=== PATIENT | female | born 1975 | race Caucasian/White ===

== ENCOUNTER 2021-10-23 14:17 | Inpatient (IN) ==
[2021-10-23] MEDS ORDERED: CeFAZolin Syr 2,000MG/20 ML 2,000 MG/20 ML SYRINGE IVPB ONE (14:30)
[2021-10-23] MEDS ORDERED: Ringers Solution, Lactated 1,000 ML IVC SCH (14:30)
[2021-10-23] MEDS ORDERED: Ondansetron 4 MG/2 ML VIAL IVP PRN ×2 (15:11→21:13)
[2021-10-23] MEDS ORDERED: *HR* HYDROmorphone PF 0.5 MG/0.5 ML SYRINGE IVP PRN (15:11)
[2021-10-23] MEDS ORDERED: *HR* OxyCODONE Immed Rel 5 MG TABLET PO PRN (15:11)
[2021-10-23] MEDS ORDERED: *HR* FentaNYL (PF) 100 MCG/2 ML VIAL ONE (15:30)
[2021-10-23] MEDS ORDERED: *HR* Propofol 200 MG/20 ML VIAL IVP ONE (15:30)
[2021-10-23] MEDS ORDERED: *HR* Midazolam HCl 2 MG/2 ML VIAL ONE (15:30)
[2021-10-23] MEDS ORDERED: Lidocaine -MPF 2% 5 ML VIAL ONE (15:32)
[2021-10-23] MEDS ORDERED: Lidocaine HCL 4 ML Topical Solution (Laryng-O-Jet Kit Sterile Pak) TP ONE (17:02)
[2021-10-23] MEDS ORDERED: Iopamidol - 300 50 ML VIAL ONE (17:51)
[2021-10-23] MEDS ORDERED: Acetaminophen IV 1,000 MG/100 ML BAG IVPB ONE ×2 (17:53→17:54)
[2021-10-23] MEDS ORDERED: *HR* Belladonna Alkaloids/Opium 30 MG RECTAL SUPPOSITORY RC PRN (21:13)
[2021-10-23] MEDS ORDERED: Naloxone 0.4 MG/ML INJ IVP PRN (21:13)
[2021-10-23] MEDS ORDERED: *HR* Promethazine 25 MG/ML VIAL IM PRN (21:13)
[2021-10-23 22:06] LABS: Basophils % 0.3 %; Hematocrit 28.3 % (35.3-44.9); Hemoglobin 8.8 g/dL (11.5-15.4); Immature Granulocytes % 0.7 % (0-4); Lymphocytes # 0.8 K/mcL (0.6-4.6); Lymphocytes % 13.2 %; Mean Corpuscular HGB Conc 31.1 g/dL (31.6-35.5); Mean Corpuscular Hemoglobin 25.6 pg (28.0-33.3); Mean Corpuscular Volume 82.3 fL (83.0-100.0); Mean Platelet Volume 9.7 fL (9.4-12.4); Monocytes # 0.2 K/mcL (0.0-1.3); Monocytes % 4.1 %; Neutrophils # 4.8 K/mcL (1.6-8.9); Platelet Count 240 K/mcL (140-400); Red Blood Count 3.44 M/mcL (3.82-4.97); Red Cell Distribution Width 19.6 % (11.5-14.5); Segmented Neutrophils % 81.7 %; White Blood Count 5.8 K/mcL (4.3-11.1)
[2021-10-23 22:30] LABS: Calcium 9.5 mg/dL (8.6-10.3); Potassium 4.3 mEq/L (3.5-5.1)
[2021-10-23] MEDS: *HR* OxyCODONE Immed Rel 5 MG TABLET PO PRN (22:48)
[2021-10-23] MEDS: 0.9 % Sodium Chloride 1,000 ML IVC SCH (22:48)
[2021-10-23] MEDS: cefTRIAXone 1,000 MG in 0.9 % Sodium Chloride 10 ML IVP SCH (22:55)
[2021-10-23] MEDS: Acetaminophen IV 1,000 MG/100 ML BAG IVPB SCH (23:02)
[2021-10-24] MEDS: Acetaminophen IV 1,000 MG/100 ML BAG IVPB SCH ×3 (06:03→17:51)
[2021-10-24] MEDS: *HR* OxyCODONE Immed Rel 5 MG TABLET PO PRN ×2 (06:04→13:26)
[2021-10-24] MEDS: cefTRIAXone 1,000 MG in 0.9 % Sodium Chloride 10 ML IVP SCH (07:48)
[2021-10-24 10:00] LABS: INR 1.3
[2021-10-24] MEDS: 0.9 % Sodium Chloride 1,000 ML IVC SCH (10:59)
[2021-10-24] MEDS ORDERED: 0.9 % Sodium Chloride 500 ML ONE (11:38)
[2021-10-24] MEDS ORDERED: *HR* FentaNYL (PF) 100 MCG/2 ML VIAL IVP ONE (12:08)
[2021-10-24] MEDS ORDERED: *HR* Midazolam HCl 2 MG/2 ML VIAL IVP ONE (12:08)
[2021-10-24] MEDS: *HR* OxyCODONE/APAP 10/325 TABLET PO PRN (20:10)
[2021-10-25] MEDS: *HR* OxyCODONE/APAP 10/325 TABLET PO PRN ×5 (00:47→22:08)
[2021-10-25] MEDS: 0.9 % Sodium Chloride 1,000 ML IVC SCH ×2 (00:56→14:05)
[2021-10-25 04:10] LABS: Basophils % 0.2 %; Eosinophils % 0.1 %; Hematocrit 26.6 % (35.3-44.9); Hemoglobin 8.4 g/dL (11.5-15.4); Immature Granulocytes % 0.7 % (0-4); Lymphocytes # 1.7 K/mcL (0.6-4.6); Lymphocytes % 13.1 %; Mean Corpuscular HGB Conc 31.6 g/dL (31.6-35.5); Mean Corpuscular Hemoglobin 25.5 pg (28.0-33.3); Mean Corpuscular Volume 80.6 fL (83.0-100.0); Mean Platelet Volume 10.7 fL (9.4-12.4); Monocytes # 0.7 K/mcL (0.0-1.3); Monocytes % 5.3 %; Platelet Count 291 K/mcL (140-400); Red Cell Distribution Width 19.8 % (11.5-14.5); Segmented Neutrophils % 80.6 %
[2021-10-25 04:17] LABS: Neutrophils # 10.7 K/mcL (1.6-8.9); White Blood Count 13.3 K/mcL (4.3-11.1)
[2021-10-25 04:31] LABS: Potassium 3.8 mEq/L (3.5-5.1)
[2021-10-25] MEDS: cefTRIAXone 1,000 MG in 0.9 % Sodium Chloride 10 ML IVP SCH (10:11)
[2021-10-25] MEDS: Hyoscyamine SL 0.125 MG TAB.SUBL SL PRN ×2 (12:17→21:48)
[2021-10-25] MEDS: *HR* HYDROcodone/Acet 5/325 mg TABLET PO PRN (21:48)
[2021-10-26] MEDS: *HR* OxyCODONE/APAP 10/325 TABLET PO PRN ×4 (02:29→21:06)
[2021-10-26] MEDS: Hyoscyamine SL 0.125 MG TAB.SUBL SL PRN ×2 (02:30→06:39)
[2021-10-26] MEDS: 0.9 % Sodium Chloride 1,000 ML IVC SCH (03:32)
[2021-10-26] MEDS: cefTRIAXone 1,000 MG in 0.9 % Sodium Chloride 10 ML IVP SCH (09:11)
[2021-10-26] MEDS: *HR* HYDROcodone/Acet 5/325 mg TABLET PO PRN (09:32)
[2021-10-26] MEDS ORDERED: Iopamidol - 300 100 ML INFUS..BTL ONE (14:57)
[2021-10-26] MEDS ORDERED: *HR* Rocuronium Bromide 50 MG/5 ML VIAL ONE (15:07)
[2021-10-26] MEDS ORDERED: *HR* Propofol 200 MG/20 ML VIAL IVP ONE (15:07)
[2021-10-26] MEDS ORDERED: *HR* Succinylcholine 200 MG/10 ML VIAL IVP ONE (15:07)
[2021-10-26] MEDS ORDERED: *HR* FentaNYL (PF) 100 MCG/2 ML VIAL ONE ×2 (15:07→16:02)
[2021-10-26] MEDS ORDERED: Lidocaine HCL 4 ML Topical Solution (Laryng-O-Jet Kit Sterile Pak) TP ONE (15:07)
[2021-10-26] MEDS ORDERED: *HR* Midazolam HCl 2 MG/2 ML VIAL ONE (15:07)
[2021-10-26] MEDS ORDERED: Ondansetron 4 MG/2 ML VIAL ONE (15:07)
[2021-10-26] MEDS ORDERED: Lidocaine -MPF 2% 5 ML VIAL ONE (15:07)
[2021-10-26] MEDS ORDERED: *HR* HYDROmorphone PF 0.5 MG/0.5 ML SYRINGE IVP PRN (15:15)
[2021-10-26] MEDS ORDERED: Ondansetron 4 MG/2 ML VIAL IVP PRN ×2 (15:15→18:02)
[2021-10-26] MEDS ORDERED: *HR* HYDROMORPHONE 2 MG/ML VIAL ONE (16:16)
[2021-10-26] MEDS ORDERED: Sugammadex Sodium 200 MG/2 ML VIAL IV ONE (16:46)
[2021-10-26] MEDS ORDERED: *HR* Promethazine 25 MG/ML VIAL ONE (17:05)
[2021-10-26] MEDS ORDERED: Hyoscyamine SL 0.125 MG TAB.SUBL SL PRN (18:02)
[2021-10-26] MEDS ORDERED: *HR* HYDROcodone/Acet 5/325 mg TABLET PO PRN (18:02)
[2021-10-26] MEDS ORDERED: 0.9 % Sodium Chloride 1,000 ML IVC SCH (18:02)
[2021-10-26] MEDS ORDERED: *HR* Promethazine 25 MG/ML VIAL IM PRN (18:02)
[2021-10-26] MEDS ORDERED: Naloxone 0.4 MG/ML INJ IVP PRN (18:02)
[2021-10-26] MEDS ORDERED: *HR* Belladonna Alkaloids/Opium 30 MG RECTAL SUPPOSITORY RC PRN (18:02)
[2021-10-27] MEDS: *HR* OxyCODONE/APAP 10/325 TABLET PO PRN (02:22)
[2021-10-27 07:40] VITALS: BP 129/74; PULSE 90; TEMP 97.2; O2SAT 95
[2021-10-27] MEDS: 0.9 % Sodium Chloride 1,000 ML IVC SCH (08:11)
[2021-10-27] MEDS ORDERED: cefTRIAXone 1,000 MG in 0.9 % Sodium Chloride 10 ML IVP SCH (09:00)
== END 2021-10-27 12:23 | disposition home or self-care (01) | DRG 466 ==
LOC: 3NENU 14:17 → SAMDAY 14:17 → 3NENU 19:47
PROVIDERS: ADMIT Urology; ATTEND Urology